=== PATIENT | female | born 1960 | race Two or more races ===

== ENCOUNTER → 2021-09-07 14:19 | Outpatient (CLI) | payer BC, SELFPAY ==
--- NOTE | ~2021-09-07 | US_ITS ---
EXAMINATION: US pelvic complete w TV DATE: 09/07/2021 14:39 INDICATION: Postmenopausal bleeding. TECHNIQUE: Multiple transabdominal and transvaginal sonographic images of the pelvis were obtained. COMPARISON: None. FINDINGS: TRANSABDOMINAL ULTRASOUND: The uterus measures 6.6 x 3.1 x 4.0 cm. There is no free fluid in the pelvis. TRANSVAGINAL ULTRASOUND: The endometrial complex measures 5 mm in thickness, which is the upper limit of normal. The ovaries a re not visualized. IMPRESSION: 1. No etiology for postmenopausal bleeding. Reviewed, dictated and finalized at location A.
== END ==
PROVIDERS: Visit Provider Obstetrics & Gynecology
DX: N95.0 Postmenopausal bleeding (principal)
CPT/HCPCS: 76830; 76856

== ENCOUNTER → 2021-11-03 03:50 | Outpatient (CLI) | payer BC, SELFPAY ==
[2021-11-03 19:26] LABS: SARS-CoV-2 RNA PCR Negative
== END ==
PROVIDERS: Visit Provider Obstetrics & Gynecology
DX: Z01.812 Encounter for preprocedural laboratory examination (principal); Z20.822 Contact with and (suspected) exposure to COVID-19
CPT/HCPCS: C9803; U0003; U0005

== ENCOUNTER 2021-11-06 01:42 | Day surgery (SDC) | payer BC, SELFPAY ==
[2021-10-30 08:56] VITALS: BMI 26.4
--- NOTE | 2021-10-30 09:17 | PC.NURSE ---
Report to the Outpatient Waiting Room, entrance under the green pavilion located off [facility], at time 1000 on date 11/06/21. OR Time: 1200. - You and your visitor will be asked a series of questions to screen for COVID 19 for your protection. - A mask is required within the hospital. - Only one visitor is allowed at this time. Patient visitors will be guided where to wait when not with patient. Preoperative COVID Testing Requirements: No COVID Test needed if: (proof is required; if not received patient will have Rapid Test prior to entry) - Patient has received COVID Vaccine at least 14 days prior to procedure date or - Patient has positive COVID test result within last 90 days of surgery date. COVID Test needed if above criteria is not met If not COVID vaccinated a COVID test must be conducted within 72 hours of surgery and patient is asked to isolate self from time of testing until procedure. You will go to the [facility] for your COVID testing. The [facility] site is located at the corner of [address] [facility]. COVID TEST 11/03 (BEING DONE AT [facility]) You will only be called if COVID results are positive and your surgeon may reschedule your elective surgery date. Patients may have clear liquids (water, carbonated beverages, clear teas, apple juice) until 3 hours prior to surgery with a maximum of 20 ounces. - No food from midnight until time of surgery - Infants may have breast milk until 4 hours before surgery, formula 6 hours prior to surgery. - Children will be allowed to drink immediately following surgery. If applicable, please bring a bottle or sippy cup to assist with drinking. Juice, water, soda, and popsicles are readily available. For infants on formula, please bring formula the day of surgery. Pacifiers are allowed. Take the following medications with a SIP of water the morning of surgery: ANTIBIOTICS Medications to discontinue per physician: VITAMINS/SUPPLEMENTS Date to take last dose: 11/02/21 Please no make-up, nail luxembourger, hairspray, perfume, deodorant, or body powder the day of surgery. No jewelry (including any body piercings) or valuables the day of surgery, leave them at home. Please take a shower or bath the night before, or the morning of, surgery with an antibacterial soap. Wear comfortable, loose fitting clothing. Children are encouraged to wear pajamas. - Jewelry must be removed prior to entering the operating room. Rings and piercings that are not removed may be cut off. - The hospital will not accept responsibility for valuables. - Please leave all valuables, including medications, at home the day of surgery. If you are going home after surgery, a licensed lifter driver must drive you home. - NO public transportation without another adult. - We recommend that an adult stay with you for 24 hours following discharge. - We also recommend that you do not drive, make important decision, drink alcoholic beverages, or take any drugs that were not prescribed by your health care provider for at least 24 hours after your discharge time. For Pediatric surgeries, we recommend two adults accompany the child home (only one inside the building at this time). Follow any additional instructions given to you from your surgeon. Telephone instructions given to CE OH and asked if any additional questions and then verbalized understanding. Patient advised to call surgeon office or pre surgery nurse liaison [phone] if any additional questions.
--- NOTE | 2021-11-06 10:21 | PM.IMHP ---
H&P: HPI History of Present Illness Date/Time: 11/06/21 10:21 Patient with a history of postmenopausal bleeding. Endometrial lining 5mm on ultrasound. Unable to obtain endometrial sample in office due to stenotic os. She was informed of option to obtain sample outpatient surgery which she desires. Chief Complaint: Postmenopausal bleeding Review of Systems Review of Systems: All systems reviewed & are unremarkable except as noted in HPI and below Cardiovascular: Cardiovascular: Reports no additional cardiovascular complaints, Denies chest pain and Denies dyspnea Respiratory: Respiratory: Reports no additional respiratory complaints and Denies dyspnea Gastrointestinal: Gastrointestinal: Reports abdominal pain, Denies change in bowel habits, Denies diarrhea, Denies nausea and Denies vomiting Genitourinary: Genitourinary: Reports pelvic pain Musculoskeletal: Musculoskeletal: Reports back pain Integumentary/Breasts: Skin/Breast: Reports system reviewed and no additional complaints, except as docu Neurologic: Reports system reviewed and no additional complaints, except as documented PMFSH Past Medical History Medical History Diverticulosis History of vaginal delivery Surgical History Surgical History History of appendectomy History of foot surgery Hx of cholecystectomy Family History Family History Mother Family history of hypothyroidism Grandparent Carcinoma of colon Father Family history of coronary artery disease, Onset Age: 50 Patient's father is Other Brain cancer Social History Social History Smoking status: Never smoker Second hand tobacco smoke exposure: No Alcohol intake: current Substance use: never Substance use type: does not use Living arrangements: with family Spiritual care concerns: No Meds Home Medications and Allergies Home Medications Medication Instructions Recorded Confirmed Type cholecalciferol (vitamin D3) 50 2,000 unit PO DAILY 12/07/19 10/30/21 History mcg (2,000 unit) tablet montelukast 10 mg tablet 10 mg PO DAILY 08/31/21 10/30/21 History amoxicillin-pot clavulanate 1 tablet PO Q12H 10/30/21 10/30/21 History metronidazole 500 mg PO Q8H 10/30/21 10/30/21 History Allergies Allergy/AdvReac Type Severity Reaction Status Date / Time No Known Allergies Allergy Unknown Verified 10/12/21 10:34 Exam Const: Orientation/consciousness: oriented to person and oriented to place HENMT: Head: normal to inspection Eyes: General: appearance normal, both eyes and all related structures Resp: Effort & Inspection: normal respiratory effort Auscultation: clear to auscultation bilaterally Cardio: Rate: regular rate Rhythm: regular rhythm GI: Inspection: normal to inspection GI Palp: No Rebound tenderness present : External Female Exam: normal external appearance Speculum Exam - Vagina: normal appearance of the vagina Speculum Exam - Cervix: normal appearance of the cervix and Other cervical findings present (stenotic os) Bimanual exam- vagina & uterus: normal bimanual exam Bimanual Exam- Adnexa, other: no masses Neuro: General: oriented to person and oriented to place Cognition (Neuro): normal cognition Extrem: General: normal to inspection Psych: Appearance: grossly normal and well kempt Assessment and Plan Assessment and plan (1) Postmenopausal bleeding: Code(s): N95.0 - Postmenopausal bleeding Status: Acute Assessment and Plan: Will perform dilation and currettage possible hysteroscopy, possible myosure if endometrial lesion present.
[2021-11-06 11:30] VITALS: BP 146/99; PULSE 88; RESP 16; TEMP 36.2; O2SAT 97
[2021-11-06] MEDS: LACTATED RINGERS 1,000 ML 30 ML IV CONT (11:30)
--- NOTE | 2021-11-06 11:41 | P.PNAN_ITS ---
Anes - Initial Pre Proc Eval Procedure: Operation Date: 11/06/21 13:00 Proposed Procedures p Hysteroscopy, Dilation And Curettage with Possible Myosure - Emerson Morataya MD Date/Time: 11/06/21 11:41 Surgeon: Emerson Morataya MD Pre Op Diagnosis: Post Menopausal Bleeding Patient Data Age: 61 Gender: F Height: 1.55 m Weight: 63.5 kg Allergies Allergy/AdvReac Type Severity Reaction Status Date / Time No Known Allergies Allergy Unknown Verified 10/12/21 10:34 Home Medications Medication Instructions Recorded Confirmed Type cholecalciferol (vitamin D3) 50 2,000 unit PO DAILY 12/07/19 11/06/21 History mcg (2,000 unit) tablet montelukast 10 mg tablet 10 mg PO DAILY 08/31/21 11/06/21 History amoxicillin-pot clavulanate 1 tablet PO Q12H 10/30/21 11/06/21 History metronidazole 500 mg PO Q8H 10/30/21 11/06/21 History misoprostol 200 mcg PO DAILY 11/06/21 11/06/21 History Patient hx anesthesia problems: none Family hx anesthesia problems: none Results Review: All pre-operative results and documents have been reviewed as part of the pre-operative evaluation. [facility] Past Medical History Medical History Diverticulosis History of vaginal delivery Surgical History Surgical History History of appendectomy History of foot surgery Hx of cholecystectomy Family History Family History Mother Family history of hypothyroidism Grandparent Carcinoma of colon Father Family history of coronary artery disease, Onset Age: 50 Patient's father is Other Brain cancer Social History Social History Smoking status: Never smoker Second hand tobacco smoke exposure: No Alcohol intake: current Substance use: never Substance use type: does not use Living arrangements: with family Spiritual care concerns: No Anes - Eval Final PreProcedure Day of Procedure 11/06/21 11:41 Patient weight: overweight Heart: regular rate and rhythm Lungs: clear to auscultation Airway: Mallampati scale class 1 Neurological: alert and oriented Last oral intake: >/= 8 hours ASA classification: II Emergent: no Anesthetic plan: proceed Anesthesia type and monitoring: general GIVS and standard monitoring Results Review: All pre-operative results and documents have been reviewed as part of the pre-operative evaluation. Informed Consent: The patient's anesthetic plan and its attendant risks and bene fits were discussed with the patient/family/POA. Questions were solicited and answers provided to the satisfaction of the patient/family/POA.
[2021-11-06] MEDS: ACETAMINOPHEN 500 MG TABLET 1000 MG PO (12:03)
--- NOTE | 2021-11-06 12:49 | WPDHPUPDATE1 ---
History and Physical Update Update Date/Time: 11/06/21 12:49 History and Physical has been reviewed, including an updated exam of the patient. There are NO changes in the patient's condition. Risks, benefits, and alternatives have been discussed and questions answered. Patient agrees to proceed with procedure.
[2021-11-06] MEDS: ceFAZolin 2 GM/D5W 50 ML 2 GM/50 ML BAG IVPB (13:03)
[2021-11-06] MEDS: KETOROLAC 30 MG/ML VIAL (*BKC) IV PUSH (13:33)
--- NOTE | 2021-11-06 13:38 | W.PM.PROC2 ---
Procedure Note - Detailed Date of Procedure 11/06/21 Pre-op Diagnosis Post Menopausal Bleeding Post-op Diagnosis same Procedure Performed Diagnostic hysteroscopy and dilation and curretage Surgeon Emerson Morataya MD Anesthesia MAC and local Indications Postmenopausal bleeding unable to obtain endometrial sampling in office Findings Uterus sound to 7cm, uterine cavity atrophic, there was a possible upper cervical polyp removed during the curretage, normal saline infused 200, recovered 130 cc. Description of Procedure After informed consent was obtained patient was taken to OR. IV sedation was administered. She was placed in high lithotomy position and prepped and draped in sterile fashion. Long speculum needed to visualize cervix and the rectocele was retracted. Cervix visualized and anterior lip of cervix grasped with tenaculum. The cervix was dilated to 8 kirkland dilator. There felt like some tissue at posterior upper cervix or lower uterine segment therefore hysteroscope was inserted. The cavity appeared atrophic no lesion. Once the hysteroscope was removed. A Currette was performed and what looked like a small adherent polyp at the post cervical canal was grasped and removed with stone forceps. Specimen sent together as endometrial currettings. Tenaculum removed. Hemostasis noted at tenaculum site. Patient tolerated procedure well and was taken to recovery room in stable condition. Sponge count correct. Estimated Blood Loss 5 Drains No Packing No Pathology yes (endometrial currettings) Complications No immediate complications Condition stable Disposition PACU
[2021-11-06 13:42] VITALS: BP 112/69; PULSE 64; RESP 16; O2SAT 97
[2021-11-06 14:10] VITALS: BP 124/67; PULSE 62
[2021-11-06] MEDS: fentaNYL CITRATE INJ (*CRX) 100 MCG/2 ML VIAL 25 MCG IV PUSH ×2 (14:15→14:20)
[2021-11-06] MEDS: oxyCODONE HCL (*CRX) 5 MG TAB IR PO (14:33)
[2021-11-06 14:40] VITALS: BP 121/67; PULSE 53
--- NOTE | 2021-11-06 15:05 | SUR.PHASEII ---
Vitals are stable. Patient is unhooked from the monitors and getting dressed. Then she is just waiting for her ride to come pick her up.
== END 2021-11-06 15:10 | disposition home or self-care (01) ==
PROVIDERS: PCP Internal Medicine; Visit Provider Obstetrics & Gynecology
PROC: 0U5B8ZZ Destruction of Endometrium, Via Natural or Artificial Opening Endoscopic (ICD-10-PCS; CPT 58563; principal; 2021-11-06 13:00)
DX: N95.0 Postmenopausal bleeding (principal); N85.8 Other specified noninflammatory disorders of uterus
CPT/HCPCS: 58558; 88305; A9270; J0690; J1885; J2250; J2704; J3010; J7030; J7120

== ENCOUNTER 2023-03-29 08:31 | Outpatient (CLI) | payer BC, SELFPAY ==
--- NOTE | ~2023-03-29 | MM_ITS ---
EXAMINATION: MM screening [facility] BI w fatoumata HISTORY: Screening mammogram TECHNIQUE: Craniocaudal and mediolateral oblique 3-D tomosynthesis images were obtained and synthetic 2-D images were generated. CAD analysis was submitted and interpreted. COMPARISON: 12/12/2017, 09/09/2015, 12/11/2012 BREAST PARENCHYMAL COMPOSITION: The breasts are almost entirely fatty. FINDINGS: No suspicious mass, calcification, or architectural distortion are identified in either haroon ast to suggest malignancy. There has been no suspicious interval change. IMPRESSION: 1. No mammographic evidence of malignancy. 2. Recommend routine screening mammography in one year. BI-RADS Category 1: Negative Reviewed, dictated and finalized at location A.
== END 2023-03-29 08:32 | disposition home or self-care (01) ==
LOC: ANHIMG 08:33
PROVIDERS: PCP Family Medicine; Visit Provider Obstetrics & Gynecology
DX: Z12.31 Encounter for screening mammogram for malignant neoplasm of breast (principal)
CPT/HCPCS: 77063; 77067

== ENCOUNTER 2023-08-05 10:26 | Outpatient (CLI) | payer BC, SELFPAY ==
--- NOTE | ~2023-08-05 | XR_ITS ---
Right Hand Technique: PA, oblique, and lateral views were obtained. Clinical History: Limited range of motion Findings: No acute fracture or dislocation is seen. There is mild to moderate degenerative change of the second PIP joint. Soft tissues are unremarkable. Impression: Mild to moderate degenerative change at the second PIP joint. Reviewed, dictated and finalized at [facility]. Impression: Mild to moderate degenerative change at the second PIP joint.
[2023-08-05 19:35] LABS: Basophils Absolute Auto 0.1 K/mm3 (0.0-0.1); Eosinophils Absolute Auto 0.3 K/mm3 (0-0.3); Eosinophils Percent Auto 3.2 % (0-4.4); Hematocrit 45.6 % (37.0-47.0); Hemoglobin 14.3 g/dL (12.0-15.0); Immature Granulocyte Absolute 0.03 K/mm3 (0.00-0.031); Immature Granulocyte Percent A 0.4 % (0-0.5); Lymphocytes Absolute Auto 2.21 K/mm3 (0.9-3.2); Lymphocytes Percent Auto 27.9 % (18.3-44.2); Mean Corpuscular HGB Conc 31.4 g/dl (32-36); Mean Corpuscular Hemoglobin 31.8 pg (26-34); Mean Corpuscular Volume 101.3 fl (80-100); Mean Platelet Volume 10.3 fl (7.4-10.4); Monocytes Absolute Auto 0.8 K/mm3 (0.1-0.6); Monocytes Percent Auto 10.1 % (2.6-8.5); Neutrophils Absolute Auto 4.6 K/mm3 (1.3-6.7); Neutrophils Percent Auto 57.4 % (45.5-73.1); Platelet Count Result 325 k/mm3 (150-375); Red Cell Distribution Width 12.9 % (11.5-14.5); White Blood Count 7.9 K/mm3 (4.5-10.0)
[2023-08-05 19:52] LABS: Vitamin D 25 Hydroxy 36.4 ng/mL
[2023-08-05 19:56] LABS: Alanine Aminotransferase 29 U/L (6-35); Alkaline Phosphatase 68 U/L (38-126); Anion Gap 7 mmol/L (8-16); Aspartate Amino Transferase 51 U/L (14-36); Bilirubin,Total 0.4 mg/dL (0.2-1.3); Blood Urea Nitrogen 19 mg/dL (7-17); Calcium 8.8 mg/dL (8.4-10.2); Carbon Dioxide 24 mmol/L (22-30); Chloride 107 mmol/L (98-107); Cholesterol 228 mg/dL (0-200); Estimated Glomerular Filt Rate > 60; Glucose 85 mg/dL (65-110); HDL Direct 39 mg/dL; Potassium 4.4 mmol/L (3.4-5.0); Sodium 138 mmol/L (137-145); Triglycerides 211 mg/dL (<150)
[2023-08-05 20:07] LABS: LDL Cholesterol Direct 119 mg/dL
[2023-08-07 20:46] LABS: ANA Cascade Screen Negative (Negative)
== END 2023-08-05 10:27 | disposition home or self-care (01) ==
LOC: ANHBWCLAB 10:27
PROVIDERS: PCP Family Medicine; Visit Provider Family Medicine
DX: Z00.00 Encounter for general adult medical examination without abnormal findings (principal); K57.90 Diverticulosis of intestine, part unspecified, without perforation or abscess without bleeding; E66.9 Obesity, unspecified; M19.049 Primary osteoarthritis, unspecified hand
CPT/HCPCS: 36415; 73130; 80053; 80061; 82306; 84443; 85025; 86038

== ENCOUNTER 2024-02-10 09:21 | Outpatient (CLI) | payer BC, SELFPAY ==
[2024-02-10 19:32] LABS: Hematocrit 47.2 % (37.0-47.0); Hemoglobin 14.6 g/dL (12.0-15.0); Mean Corpuscular HGB Conc 30.9 g/dl (32-36); Mean Corpuscular Hemoglobin 31.4 pg (26-34); Mean Corpuscular Volume 101.5 fl (80-100); Platelet Count Result 341 k/mm3 (150-375); Red Blood Count 4.65 M/mm3 (4.2-5.4); Red Cell Distribution Width 13.2 % (11.5-14.5); White Blood Count 7.6 K/mm3 (4.5-10.0)
[2024-02-10 19:35] LABS: Appearance Urine Clear (Clear); Bacteria Urine None Seen /hpf; Bilirubin Urine Negative (Negative); Blood Urine Negative (Negative); Color Urine Yellow (Yellow); Glucose Urine UA Negative (Negative); Ketones Urine Negative (Negative); Leukocyte Esterase Ur 1+ LEU/UL (Negative); Need Manual Microscopic Reviewed; Nitrate Urine Negative (Negative); Non Pathogenic Casts 0-2; Protein Urine Negative (Negative); RBC Urine 0-2 /hpf (0-2); Specific Grav Ur 1.016 (1.001-1.035); Squamous Epithelial Cell Urine Occasional /hpf (Few); Urobilinogen Urine 0.2 mg/dL (<2.0); WBC Urine 0-5 /hpf (0-3); pH Urine 5.5 (5.0-9.0)
[2024-02-10 19:36] LABS: Add Urine Microscopic? YES; Alanine Aminotransferase 25 U/L (6-35); Albumin Level 3.8 g/dL (3.5-5.1); Alkaline Phosphatase 73 U/L (38-126); Anion Gap 5 mmol/L (8-16); Aspartate Amino Transferase 39 U/L (14-36); Bilirubin,Total 0.5 mg/dL (0.2-1.3); Blood Urea Nitrogen 16 mg/dL (7-17); Calcium 8.7 mg/dL (8.4-10.2); Carbon Dioxide 27 mmol/L (22-30); Chloride 107 mmol/L (98-107); Estimated Glomerular Filt Rate 56; Glucose 92 mg/dL (65-110); Potassium 3.9 mmol/L (3.4-5.0); Sodium 139 mmol/L (137-145)
[2024-02-10 19:49] LABS: Vitamin D 25 Hydroxy 49.4 ng/mL
== END 2024-02-10 09:22 | disposition home or self-care (01) ==
PROVIDERS: PCP Family Medicine; Visit Provider Family Medicine
DX: E66.9 Obesity, unspecified (principal); F41.9 Anxiety disorder, unspecified; M19.049 Primary osteoarthritis, unspecified hand; R74.01 Elevation of levels of liver transaminase levels; Z00.00 Encounter for general adult medical examination without abnormal findings; R42 Dizziness and giddiness; G43.109 Migraine with aura, not intractable, without status migrainosus
CPT/HCPCS: 36415; 80053; 82306; 84443; 85027

== ENCOUNTER 2024-03-23 11:12 | Outpatient (CLI) | payer BC, SELFPAY ==
[2024-03-23 18:24] LABS: Hematocrit 45.6 % (37.0-47.0); Hemoglobin 14.6 g/dL (12.0-15.0); Mean Corpuscular Hemoglobin 31.7 pg (26-34); Mean Corpuscular Volume 99.1 fl (80-100); Platelet Count Result 362 k/mm3 (150-375); White Blood Count 8.4 K/mm3 (4.5-10.0)
[2024-03-23 19:24] LABS: Hepatitis B Surface Antigen Negative (Negative)
[2024-03-23 19:29] LABS: HAV RESULT Negative (Negative); Hepatitis B Core IgM Result Negative (Negative)
[2024-03-23 19:41] LABS: Hepatitis C Virus Antibody Negative (Negative)
[2024-03-23 19:56] LABS: Alanine Aminotransferase 23 U/L (6-35); Alkaline Phosphatase 68 U/L (38-126); Aspartate Amino Transferase 49 U/L (14-36); Bilirubin,Total 0.4 mg/dL (0.2-1.3)
== END 2024-03-23 11:13 | disposition home or self-care (01) ==
PROVIDERS: PCP Family Medicine; Visit Provider Family Medicine
DX: R74.01 Elevation of levels of liver transaminase levels (principal); R74.8 Abnormal levels of other serum enzymes
CPT/HCPCS: 36415; 80074; 80076; 85027

== ENCOUNTER 2024-04-24 14:36 | Outpatient (CLI) | payer BC, SELFPAY ==
--- NOTE | ~2024-04-24 | DEXA_ITS ---
Bone Density Report Name: CE OH Age: 64 Sex: Female Ethnicity: White Date of : 1960 Indication: postmenopausal; screening for osteoporosis; height loss; Referring Provider: SOBIA GAVIN Study: Bone densitometry was performed. Exam Date: April 24, 2024 Accession number: [id number] Bone Density: Region BMD T-score Z-score Classification AP Spine(L1-L4) 1.096 0.4 2.1 Normal Femoral Neck (Left) 0.787 -0.6 0.9 Normal Total Hip (Left) 1.008 0.5 1.7 Normal Femoral Neck (Right) 0.729 -1.1 0.4 Osteopenia Total Hip (Right) 0.990 0.4 1.6 Normal Total Hip Mean 0.999 0.5 1.7 Normal World Health Organization criteria for BMD impression classify patients as: Normal (T-score at or above -1.0), Osteopenia (T-score between -1.0 and -2.5), or Osteoporosis (T-score at or below -2.5). 10-year Fracture Risk(1): Major Osteoporotic Fracture 6.8% Hip Fracture 0.4% Reported Risk Factors: [place] (), Neck BMD=0.729, BMI=45.2 (1) FRAX(R) Version 3.08. Fracture probability calculated for an untreated patient. Fracture probability may be lower if the patient has received treatment. Clinical Information Provided by Patient: Patient maximum height was 63 Menopause Age: 48 No regular weight bearing exercise Drinks caffeinated beverages Onset of menses at age 9 Number of children 3 Impression: The patient has low bone mass, based on the Right Femoral Neck T-score. The patient has an estimated ten-year risk of hip fracture of 0.4% and an estimated ten-year risk of major fracture of 6.8%, based on the WHO FRAX algorithm. Discussion: BONE DENSITY IS LOW AT ONE OR MORE SKELETAL SITES. This patient's lowest T-score is low at one or more skeletal sites. It meets the World Health Organization's (WHO) criteria for ?low bone mass? (T-score between -1.0 and -2.5). The patient's 10-year risk of fracture as calculated by FRAX is less than the threshold where pharmacological therapy is recommended by the National Osteoporosis Foundation (NOF). However, all treatment decisions require clinical judgment and consideration of individual patient factors, including patient preferences, comorbidities, previous drug use, risk factors not captured in the FRAX model (e.g., frailty, falls, vitamin D deficiency, increased bone turnover, interval significant decline in bone density) and possible under or overestimation of fracture risk by FRAX. The patient should follow a healthful lifestyle (good nutrition with adequate calcium and vitamin D, and appropriate weight-bearing exercise). Follow-Up: Consider repeating this study in 2 to 3 years to reassess this patient's status, or sooner if there is some new clinical indication. Reported by: GABY on 04/28/2024 7:41:00 AM.
== END 2024-04-24 14:37 | disposition home or self-care (01) ==
LOC: ANHIMG 14:38
PROVIDERS: PCP Obstetrics & Gynecology; Visit Provider Family Medicine
DX: M85.89 Other specified disorders of bone density and structure, multiple sites (principal); Z78.0 Asymptomatic menopausal state; Z13.820 Encounter for screening for osteoporosis
CPT/HCPCS: 77080

== ENCOUNTER 2024-04-29 08:22 | Outpatient (CLI) | payer BC, SELFPAY ==
--- NOTE | ~2024-04-29 | MR_ITS ---
EXAMINATION: MR brain/brain stem wo con DATE: 04/29/2024 09:41 INDICATION: Migraine with aura, not intractable. TECHNIQUE: Magnetic resonance imaging (MRI) of the brain and brainstem was performed without intraven ous contrast. COMPARISON: None. FINDINGS: There are a few areas of nonspecific increased T2-weighted signal intensity in the cerebral white matter, which is within normal limits for the patient's age. There is no intracranial hemorrha ge, acute infarction, or abnormal intracranial mass lesion. The ventricles are normal in size. The pa ranasal sinuses are clear. The orbits are normal. The mastoid air cells are normal. IMPRESSION: 1. Normal brain. Reviewed, dictated and finalized at location A. IMPRESSION: 1. Normal brain.
--- NOTE | ~2024-04-29 | US_ITS ---
US abdomen limited INDICATION: Abnormal levels of serum enzymes. PROCEDURE: Realtime right upper abdominal ultrasound. COMPARISON: No prior studies for comparison. FINDINGS: The pancreas is normal without focal mass or pancreatic ductal dilation. Liver echotexture is increased and somewhat heterogeneous, consistent with fatty infiltration. There is normal direct ional flow in the portal vein. Gallbladder is surgically absent. Common bile duct measures 12 mm. No sonographic Moreno's sign. IMPRESSION: 1: Status post cholecystectomy with expected prominence of the common bile duct. 2: Fatty infiltration of the liver. Reviewed, dictated and finalized at location B. IMPRESSION: 1: Status post cholecystectomy with expected prominence of the common bile duct . 2: Fatty infiltration of the liver.
== END 2024-04-29 08:23 | disposition home or self-care (01) ==
PROVIDERS: PCP Family Medicine; Visit Provider Family Medicine
DX: R74.8 Abnormal levels of other serum enzymes (principal); K76.0 Fatty (change of) liver, not elsewhere classified; Z90.49 Acquired absence of other specified parts of digestive tract
CPT/HCPCS: 70551; 76705

== ENCOUNTER 2024-06-11 13:01 | Outpatient (CLI) | payer BC, SELFPAY ==
--- NOTE | ~2024-06-11 | US_ITS ---
Pelvic ultrasound. Clinical History: Pelvic pain Technique: Realtime transabdominal and transvaginal scanning of the pelvis was performed. Color flow Doppler and Doppler spectral analysis were performed. Findings: The uterus is anteverted. The endometrial stripe has a thickness of 5 mm. No focal mass is identified. Neither ovary seen. No adnexal mass seen. There is no evidence of free fluid in the cul de sac. Impression: Unremarkable uterus. Neither ovary seen. No adnexal mass seen. Reviewed, dictated and finalized at location M. Impression: Unremarkable uterus. Neither ovary seen. No adnexal mass seen.
== END 2024-06-11 13:02 ==
PROVIDERS: PCP Family Medicine; Visit Provider Nurse Practitioner Family
DX: R10.2 Pelvic and perineal pain (principal)
CPT/HCPCS: 76830; 76856

== ENCOUNTER 2024-11-20 15:39 | Outpatient (CLI) | payer BC, SELFPAY ==
--- NOTE | ~2024-11-20 | MM_ITS ---
EXAMINATION: MM screening [facility] BI w fatoumata HISTORY: Screening TECHNIQUE: Craniocaudal and mediolateral oblique 3-D tomosynthesis images were obtained and synthetic 2-D images were generated. CAD analysis was submitted and interpreted. COMPARISON: 03/29/2023 and dating back to 09/09/2015 BREAST PARENCHYMAL COMPOSITION: There are scattered areas of fibroglandular density. FINDINGS: Punctate calcifications are detected bilaterally, stable and benign in appearance. Stable parenchymal pattern without suspicious microcalcifications, architectural distortion, discrete masses or significant asymmetry. IMPRESSION: 1. No mammographic evidence of malignancy. 2. Recommend routine screening mammography in one year. BI-RADS Category 2: Benign finding(s). Reviewed, dictated and finalized at location A. M CHASER
== END 2024-11-20 15:40 | disposition home or self-care (01) ==
LOC: ANHIMG 15:40
PROVIDERS: PCP Family Medicine; Visit Provider Obstetrics & Gynecology
DX: Z12.31 Encounter for screening mammogram for malignant neoplasm of breast (principal)
CPT/HCPCS: 77063; 77067